=== PATIENT | male | born 1965 | race Caucasian/White ===

== ENCOUNTER 2017-07-07 05:19 | Inpatient (IN) | payer OTHER, SELFPAY ==
[2017-07-07] MEDS ORDERED: Acetaminophen 500 MG TAB ONE (05:29)
[2017-07-07] MEDS ORDERED: Morphine 4 MG/ML VIAL ONE ×2 (05:29→06:38)
[2017-07-07 06:05] LABS: ALT (SGPT) 33 U/L (8-55); AST (SGOT) 27 U/L (5-34); Albumin 4.1 g/dL (3.5-5.0); Alkaline Phosphatase 50 U/L (40-150); Anion Gap 13 mmol/L (10-20); BUN (Urea Nitrogen) 15 mg/dL (8.4-25.7); Bilirubin, Total 1.8 mg/dL (0.2-1.2); Calc. Creatinine Clearance 0 mL/min (70-130); Calcium 9.3 mg/dL (7.8-10.44); Carbon Dioxide 30 mmol/L (22-29); Chloride 94 mmol/L (98-107); Estimated GFR-MDRD 61; Globulin 3.3 g/dL (2.4-3.5); Glucose 130 mg/dL (70-105); Potassium 3.7 mmol/L (3.5-5.1); Protein, Total 7.4 g/dL (6.0-8.3); Sodium 133 mmol/L (136-145)
[2017-07-07] MEDS ORDERED: cefTRIAXone\\ROCEPHIN 2 GM VIAL ONE (06:14)
[2017-07-07] MEDS ORDERED: Sodium Chloride 0.9% 100 ML ONE (06:14)
[2017-07-07 06:17] LABS: Hemoglobin 16.8 g/dL (14.0-18.0); Mean Corpuscular Hemoglobin 34.3 pg (27.0-31.0); Mean Platelet Volume 6.6 fL (7.4-10.4); Platelet Count 188 thou/uL (130-400); RBC Distribution Width 13.7 % (11.5-14.5); Red Blood Cell (RBC) Count 4.88 mill/uL (4.70-6.10); White Blood Cell (WBC) Count 19.4 thou/uL (4.8-10.8)
[2017-07-07 06:30] LABS: Bilirubin Small (Negative); Blood, Urine Negative (Negative); Clarity CLOUDY (Clear); Glucose, Urine (Dipstick) Negative (Negative); Leukocyte Moderate (Negative); Nitrite Positive (Negative); Protein, Urine (Dipstick) 100 mg/dL (Neg-Trace); pH, Urine 7.5 (5.0-9.0)
[2017-07-07 06:32] LABS: Bacteria/HPF None Seen HPF (None Seen)
[2017-07-07 06:34] LABS: Pathc Cast-AUWi Flag 3.92 (0-2.49)
[2017-07-07 06:58] LABS: RBC/HPF 0-3 HPF (0-3)
[2017-07-07 07:09] LABS: Band 29 % (5-11); Lymphocytes 4 % (21-51); MDiff Complete? YES; Metamyelocyte 3 % (0-0); Monocytes 12 % (0-10); Neutrophil 51 % (42-75); PLT Morphology Comment Appears Adequate; Reactive Lymphocytes 1 % (0-10)
[2017-07-07 08:27] VITALS: BMI 44.7
[2017-07-07] MEDS ORDERED: Ondansetron HCl/PF 4 MG/2 ML Vial IVP PRN (08:28)
[2017-07-07] MEDS ORDERED: HYDROcodone/Acetaminophen 5/325 mg Tablet PO PRN ×3 (08:28→21:05)
[2017-07-07] MEDS ORDERED: Ondansetron ODT 4 MG TAB SL PRN (08:28)
[2017-07-07] MEDS: Lorazepam 1 MG TAB PO PRN ×3 (08:56→23:04)
[2017-07-07] MEDS: Sodium Chloride 0.9% 1,000 ML IV SCH ×2 (09:00→15:18)
[2017-07-07] MEDS ORDERED: Acetaminophen 325 MG TAB PO PRN (10:00)
[2017-07-07 10:01] LABS: Lactic Acid 2.1 mmol/L (0.5-2.2)
[2017-07-07] MEDS ORDERED: ISOVUE-370 76%-LOCM 1 ML ONE (11:38)
--- NOTE | 2017-07-07 11:57 | PDOC.EVN ---
Event Note - Event Note Event Note: H&P #[id number]
--- NOTE | 2017-07-07 12:11 | CT ---
PRELIMINARY REPORT/[facility]/EMERGENTY AFTER-HOURS PROCEDURE CT Abdomen and Pelvis With Intravenous Contrast CLINICAL HISTORY: 52 years old, male; Pain; Abdominal pain; Patient HX: 52 y/o m with presentation of uti symptoms (dys uria and foul-smelling urine) x3 days with worsening abdominal and back pain. Pt reports fever tmax 1 01 and was d/c'ed from [facility] with cipro for uti. TECHNIQUE: Axial computed tomography images of the abdomen and pelvis with intravenous contrast. Coronal reforma tted images were created and reviewed. COMPARISON: No relevant prior studies available. FINDINGS: Lung bases: Unremarkable. No mass. No consolidation. Mediastinum: Fluid in the visualized distal esophagus. ABDOMEN: Liver: Diffuse hepatic steatosis. Gallbladder and bile ducts: Unremarkable Pancreas: Unremarkable. Spleen: Unremarkable. Adrenals: Unremarkable. Kidneys and ureters: Subcentimeter bilateral renal hypodensities, statistically cysts. Stomach and bowel: Diverticulosis of the colon without inflammatory changes. Gastric banding in place . PELVIS: Appendix: Normal. Bladder: Diffuse urinary bladder wall thickening. Reproductive: Unremarkable. ABDOMEN and PELVIS: Intraperitoneal space: No free air. No significant fluid collection. Bones/joints: Multilevel degenerative changes of the spine. Severe degenerative changes of the bilate ral hip joints. No acute fracture. No dislocation. Soft tissues: Unremarkable. Vasculature: No abdominal aortic aneurysm. Lymph nodes: Scattered non specific subcentimeter mesenteric lymph nodes. IMPRESSION: 1. Diffuse urinary bladder wall thickening which maybe due to underdistention, however this likely re presents cystitis given the clinical history. 2. Fluid in the visualized distal esophagus. Correlate clinically for reflux disease. 3. Diverticulosis of the colon without inflammatory changes. 4. Diffuse hepatic steatosis. Thank you for allowing us to participate in the care of your patient. Dictated and Authenticated by: Esteban Burkett MD 07/07/2017 6:46 AM Central Time ([place] & [place]) FINAL REPORT CT OF ABDOMEN AND PELVIS PERFORMED WITH IV CONTRAST ENHANCEMENT: Date: 07/07/17 HISTORY: Abdominal pain. UTI symptoms x3 days. Fever. FINDINGS: The lung bases are clear of infiltrates. Liver shows pronounced diffuse fatty change. The liver is not enlarged. The spleen measures 12.2 cm i n length. Pancreas and gallbladder regions are unremarkable. A gastric band is in place. There is fluid within the distal esophagus associated with this. This cou ld be related to reflux or retention of fluid related to the band. Right and left adrenal glands, and right and left kidneys are normal in size. Tiny hypodensities in b oth kidneys are statistically most likely cysts. No renal calculi. No significant periaortic or mesen teric adenopathy. CT of pelvis was performed with contrast enhancement. There is sigmoid diverticulosis noted. No infla mmatory change. The appendix is normal. There is no adenopathy or mass. The bladder is not distended. Wall is questionably thickened versus underdistention. IMPRESSION: 1. Diffuse fatty changes of the liver. 2. Gastric band in place with fluid within the distal esophagus. 3. Sigmoid diverticulosis. 4. Underdistended bladder. I am not certain if the wall thickening of the bladder is related to unde rdistention or cystitis. Clinical correlation is recommended. This report is in agreement with the preliminary report issued by [facility]. POS: [facility]
[2017-07-07 12:49] LABS: Troponin I Less than 0.010 ng/mL (< 0.028)
--- NOTE | 2017-07-07 14:35 | HP ---
DATE OF ADMISSION: 07/07/2017 CHIEF COMPLAINT: Back pain, dysuria, and fever. HISTORY OF PRESENT ILLNESS: This is a 52-year-old male, who apparently 4 or 5 days ago was noted to have some burning upon urination as well as increased frequency in urination. The patient stated reshma t he waited for about 2-3 days, and given the severe symptomatology, the patient went to [facility] and was given antibiotics p.o. and told to follow up if symptoms worsen in 24 hours. Patient upo n discharge, as stated 5-6 hours around 1:00 a.m. in the morning, he was having severe significant wo rsening of his symptoms and decided to come to the [facility] ER. The patient at the time of the a dmission in the ER was found to have a white count of 19.4 as well as lactic acid of 3.7, which on re peat was 2.1. Patient's urinalysis indicative of a severe significant urinary tract infection as wel l as possible pyelonephritis. CT scan done, results are pending. Patient, at this point in time, is being seen in the hospital room. States that he still has some abdominal pain, but has improved sin ce the antibiotic received yesterday. Patient states that this has never happened to him before; fir st time this has occurred. No alleviating or aggravating factors. Does admit to some mild abdominal discomfort and nausea. Otherwise, no other associated complaints or symptoms. The patient was seen and examined in the hospital room. No family at bedside. All questions answered. ALLERGIES: No known drug allergies. PAST MEDICAL HISTORY: Has been positive for hypertension, sleep apnea, left lower extremity DVT as w ell as bilateral lower extremity swelling, and hyperlipidemia. SOCIAL HISTORY: The patient admits to drinking 5-6 glasses of whiskey a day chronically. Does state that he sometimes gets shakes when he has not drunk for a long time. His last drink supposedly was 40 hours ago. Given Ativan as he was having some withdrawal symptoms earlier. Denies any smoking, h as never smoked in the past. FAMILY HISTORY: Mother had heart disease and of a stroke. Father had diabetes, still alive. MEDICATIONS: See MAR. REVIEW OF SYSTEMS: All systems reviewed. Pertinent positives in the HPI, otherwise negative. PHYSICAL EXAMINATION: VITAL SIGNS: Blood pressure is 139/94, O2 saturation 92% on room air, pulse is 97, temperature of 98 .1, respiratory rate of 18. GENERAL: The patient lying in bed, appears in mild discomfort, severe discomfort when asked to sit u p for physical exam, morbidly obese. HEENT: His entire head appears flushed, red, blanching. Oral cavity moist and pink. Normocephalic, atraumatic. Pupils equal, round, reactive to light and accommodation. Extraocular muscles intact. NECK: Increased size; however, mobile, nontender thyroid noted. No lymphadenopathy noted. PULMONARY EXAM: Distant lung sounds; however, clear to auscultation bilaterally. No rales, rhonchi, wheezing noted. Increased AP diameter noted. CARDIOVASCULAR EXAM: Again, distant heart sounds; however, regular rate and rhythm. S1 and S2. No murmurs, rubs, or gallops appreciated. ABDOMINAL EXAM: Mildly tender to palpation, severe flank pain on the left side, and then left-sided costovertebral angle tenderness. Positive bowel sounds. Rotund. No rebound or guarding noted. EXTREMITIES: Lower extremities, left lower extremity has a 2+ pitting edema, right lower extremity a s 1+ pitting edema. Good sensation in bilateral lower extremities. Moving all 4 extremities. NEUROLOGIC: He is alert and oriented x3, answering questions appropriately. Normal affect and no lo ss of motor or sensory function. SKIN: Normal turgor, no rashes noted. LABORATORY MARTINEZ: CBC again shows a white count of 19.4, MCV 101, otherwise platelets and hematocrit are normal. Basic metabolic panel shows a sodium of 133, bicarbonate of 30, chloride of 94, glucose of 130, lactic acid 3.1 and repeat being 2.1, total bilirubin of 1.8, otherwise within normal limits. Urinalysis positive for protein, trace ketones, positive nitrites, bilirubin, moderate leukocyte es terase, white blood cells as well as hyaline casts. ASSESSMENT AND PLAN: 1. Complicated urinary tract infection with possible pyelonephritis. 2. Obesity. 3. Hypertension. 4. Sleep apnea. 5. Hyperlipidemia. 6. Deep vein thrombosis. 7. Alcohol addiction/abuse. PLAN: At this point in time, we will get the patient on Rocephin. Continue with IV fluids. CT scan of the abdomen done, results pending. The patient symptomatically states he feels a little bit bett er today. We will obtain echocardiogram given that the patient is having bilateral edema and not jus t edema in that extremity that has a DVT. We will also obtain chest x-ray and do a troponin trend, a s the patient does state that at times he gets dyspnea on exertion. Otherwise, we will continue home medications, p.r.n. Ativan for withdrawal symptoms. Blood pressure target systolic 130-140. We sarah l also check an A1c if the patient's blood sugar on repeat BMP is elevated. Patient had denied any d iagnosis of diabetes. The patient states that he wants to be a FULL CODE at this point in time after discussion of code status. Case and plan discussed with the patient at length. No family at [facility]. He understands and agrees with this plan.
--- NOTE | 2017-07-07 16:33 | RAD ---
AP VIEW CHEST: 07/07/17 HISTORY: Sepsis, cough. AP view chest is obtained on 07/07/17. AP view chest demonstrates some mild pulmonary vascular congestion. No evidence of effusions, pneumon ia or pneumothorax seen. IMPRESSION: Mild pulmonary vascular congestion, otherwise unremarkable AP view chest. POS: [facility]
[2017-07-07 17:09] LABS: Actual Bicarbonate (HCO3a) 26.2 mEq/L (22-26); Base Excess (BEa) 2.5 mEq/L (0 (+/-) 2.5); CO2 Tension 37.6 mmHg (35.0-45.0); O2 Tension (PaO2) 65.5 mmHg (80.0-100.0); pH, Arterial 7.46 (7.35-7.45)
[2017-07-07 17:10] LABS: Hemoglobin (Hb) 14.5 g/dL (14.0-18.0); Puncture Site RRA
[2017-07-07 18:40] LABS: Troponin I Less than 0.010 ng/mL (< 0.028)
[2017-07-07] MEDS ORDERED: Labetalol HCl 100 MG/20 ML VIAL SLOW IVP PRN (21:14)
[2017-07-07] MEDS ORDERED: Atenolol 50 MG TAB PO SCH (21:15)
[2017-07-07] MEDS ORDERED: Rivaroxaban 10 MG TAB PO SCH (21:15)
[2017-07-07] MEDS ORDERED: Lisinopril/Hydrochlorothiazide 20/25 mg Tablet PO SCH (21:15)
[2017-07-07] MEDS: HYDROcodone/Acetaminophen 5/325 mg Tablet PO PRN (21:22)
[2017-07-07] MEDS: Vancomycin HCl 1.5 GM in Sodium Chloride 0.9% 250 ML 300 ML IVPB SCH (22:56)
[2017-07-07] MEDS ORDERED: Ibuprofen 200 MG TAB PO SCH (23:30)
--- NOTE | 2017-07-08 04:37 | PDOC.EVN ---
Event Note - Event Note Event Note: has high grade fever, vancomycin added c/o right leg weakness, so will get CT LS spine and CT brain pt seen and examined bedside
[2017-07-08 04:38] LABS: #Lymphocytes 0.6 thou/uL (1.20-3.40); #Monocytes 0.5 thou/uL (0.11-0.59); #Neutrophils 7.9 thou/uL (1.40-6.50); %Basophils 0.1 % (0.0-1.0); %Eosinophils 0.2 % (0.0-10.0); %Lymphocytes 6.8 % (21.0-51.0); %Monocytes 5.2 % (0.0-10.0); %Neutrophils 87.7 % (42.0-75.0); Mean Corpuscular Hemoglobin 34.7 pg (27.0-31.0); Mean Platelet Volume 7.1 fL (7.4-10.4); Platelet Count 133 thou/uL (130-400); RBC Distribution Width 13.8 % (11.5-14.5); Red Blood Cell (RBC) Count 4.31 mill/uL (4.70-6.10)
[2017-07-08 04:48] LABS: Anion Gap 13 mmol/L (10-20); BUN (Urea Nitrogen) 20 mg/dL (8.4-25.7); Calc. Creatinine Clearance 187 mL/min (70-130); Calcium 8.2 mg/dL (7.8-10.44); Carbon Dioxide 28 mmol/L (22-29); Chloride 95 mmol/L (98-107); Estimated GFR-MDRD 68; Glucose 109 mg/dL (70-105); Potassium 3.5 mmol/L (3.5-5.1); Sodium 132 mmol/L (136-145)
[2017-07-08] MEDS: HYDROcodone/Acetaminophen 5/325 mg Tablet PO PRN ×3 (05:08→15:30)
[2017-07-08] MEDS: Sodium Chloride 0.9% 1,000 ML IV SCH ×2 (05:10→15:19)
[2017-07-08] MEDS: Diazepam 5 MG TAB PO PRN ×2 (05:40→18:47)
[2017-07-08] MEDS ORDERED: cefTRIAXone\\ROCEPHIN 2 GM in Sodium Chloride 0.9% 100 ML IVPB SCH (06:00)
[2017-07-08] MEDS: Vancomycin HCl 1.5 GM in Sodium Chloride 0.9% 250 ML 300 ML IVPB SCH (08:19)
[2017-07-08] MEDS: Lorazepam 1 MG TAB PO PRN ×2 (08:24→15:17)
[2017-07-08] MEDS ORDERED: Rivaroxaban 10 MG TAB PO SCH (09:00)
[2017-07-08] MEDS ORDERED: Atenolol 50 MG TAB PO SCH (09:00)
[2017-07-08] MEDS ORDERED: Terazosin HCl 1 MG CAP PO SCH (09:00)
[2017-07-08] MEDS ORDERED: Lisinopril/Hydrochlorothiazide 20/25 mg Tablet PO SCH (09:00)
[2017-07-08] MEDS ORDERED: pyridOXINE 50 MG (B6) TAB PO SCH (09:00)
[2017-07-08] MEDS ORDERED: Folic Acid 1 MG TAB PO SCH (09:00)
--- NOTE | 2017-07-08 10:42 | PDOC.PN ---
- Subjective Encounter Start Date: 07/08/17 Encounter Start Time: 10:40 Patient seen and examined, overnight lost sensation in both legs and now having bladder incontinence, no other issues. - Objective Vital Signs & Weight: Vital Signs (12 hours) Temp Pulse Resp BP BP Pulse Ox 07/08/17 07:42 99.3 F 108 H 20 121/73 95 07/08/17 04:24 98.7 F 108 H 20 145/93 H 145/93 H 94 L 07/08/17 00:52 99.1 F 115 H 20 136/84 91 L Weight Admit Weight 387 lb Weight 387 lb I&O: 07/07/17 07/08/17 07/09/17 06:59 06:59 06:59 Intake Total 4875 Balance 4875 Result Diagrams: 07/08/17 03:47 07/08/17 03:47 Additional Labs: Accuchecks 07/07/17 21:36 POC Glucose 107 Phys Exam - Physical Examination Constitutional: NAD HEENT: PERRLA, moist MMs, sclera anicteric Neck: no nodes, no JVD, supple Respiratory: no wheezing, no rales, no rhonchi Cardiovascular: RRR, no significant murmur, no rub Gastrointestinal: soft, non-tender, no distention, positive bowel sounds Musculoskeletal: no edema, pulses present B/L LE loss of sensation and motor function bladder incontinence Psychiatric: normal affect, A&O x 3 Skin: no rash, normal turgor Dx/Plan (1) Lower extremity paralysis Code(s): G83.10 - MONOPLEGIA OF LOWER LIMB AFFECTING UNSPECIFIED SIDE Status: Acute (2) Bladder incontinence Code(s): R32 - UNSPECIFIED URINARY INCONTINENCE Status: Acute (3) Pyelonephritis Code(s): N12 - TUBULO-INTERSTITIAL NEPHRITIS, NOT SPCF ACUTE OR CHRONIC Status: Acute (4) Sepsis Code(s): A41.9 - SEPSIS, UNSPECIFIED ORGANISM Status: Acute (5) UTI (urinary tract infection) Status: Acute (6) Bacteremia Code(s): R78.81 - BACTEREMIA Status: Acute - Plan * ID and neuro sx consult * [facility] * cont abx for now * d/w neuro surgery about neurological changes, they will follow * will keep patient on this floor for now, may consider transfer to ortho floor if ok with neuro sx and IMCU if condition worsens * case and plan d/w patient at length, he understands and agrees with this plan
--- NOTE | 2017-07-08 11:56 | CT ---
PRELIMINARY REPORT/[facility]/EMERGENTY AFTER-HOURS PROCEDURE CT Head Without Intravenous Contrast CLINICAL HISTORY: 52 years old, male; Signs and symptoms; Weakness, extremity; Bilateral; Patient HX: Bilater lower ext remity weakness TECHNIQUE: Axial computed tomography images of the head/brain without intravenous contrast. COMPARISON: No relevant prior studies available. FINDINGS: Normal brain morphology. Bruno-white matter differentiation is preserved. No intracranial hemorrhage or hydrocephalus. No mass, mass effect or midline shift. No effacement of the cortical sulci and basal cisterns. Orbits are unremarkable. Minimal opacification of the right anterior ethmoid air cell. Mastoid air cells are clear. No acute fracture. Multiple dental restorations. Soft tissues unremarkable. IMPRESSION: No acute intracranial abnormality. Thank you for allowing us to participate in the care of your patient. Dictated and Authenticated by: Esteban Burkett MD 07/08/2017 5:25 AM Central Time ([place] & [place]) FINAL REPORT CT OF BRAIN PERFORMED WITHOUT CONTRAST ENHANCEMENT: Date: 07/08/17 HISTORY: Leg weakness and immobility. FINDINGS: The ventricular and cisternal system is within normal limits. There are no signs of intracerebral hem orrhage or extra-axial fluid collections. Mastoid air cells and visualized sinuses are clear. IMPRESSION: No acute intracranial abnormalities. This report is in agreement with the preliminary report issued by [facility]. POS: [facility]
--- NOTE | 2017-07-08 11:58 | CT ---
PRELIMINARY REPORT/[facility]/EMERGENTY AFTER-HOURS PROCEDURE CT Lumbar Spine Without Intravenous Contrast CLINICAL HISTORY: 52 years old, male; Signs and symptoms; Weakness; Patient HX: Acute bilateral lower extremity immobil ity TECHNIQUE: Axial computed tomography images of the lumbar spine without intravenous contrast. Coronal and sagitt al reformatted images were created and reviewed. COMPARISON: No relevant prior studies available. FINDINGS: Vertebrae: There are multilevel degenerative changes consisting of disk space height loss, endplate s clerosis and osteophytosis and facet arthrosis. Multilevel Schmorl's nodes. No acute fracture. Discs/spinal canal/neural foramina: Broad posterior disc osteophyte complex at L2/L3 and L3/L4 with s evere L3/L4 and mild L2/L3 spinal canal stenosis. Severe right L5/S1 neuroforaminal narrowing. Soft tissues: Unremarkable. IMPRESSION: 1. No acute fracture. 2. Multilevel degenerative changes with spinal canal stenosis and neuroforaminal narrowing as describ ed above. Consider further evaluation with MRI as clinically warranted. Thank you for allowing us to participate in the care of your patient. Dictated and Authenticated by: Esteban Burkett MD 07/08/2017 5:18 AM Central Time ([place] & [place]) FINAL REPORT EMERGENCY AFTER HOURS CT OF LUMBAR SPINE PERFORMED WITHOUT CONTRAST ENHANCEMENT: Date: 07/08/17 HISTORY: Bilateral lower extremity weakness. FINDINGS: The vertebral bodies are normal in height. Vacuum disc phenomenon is seen at L2-3 and L4-5. Mild disc narrowing is seen at L5-S1. Degenerative facet changes are seen along the course of the cervical spi ne. No significant periaortic adenopathy visualized. Abdominal aorta appears normal in caliber. Exam quality is limited by body habitus. T12-L1: Unremarkable. L1-2: Degenerative facet changes without definite canal or foraminal stenosis. L2-3: There is posterior osteophytic change at this level. Facet and ligamentous hypertrophic changes are s een. There is a moderate degree of canal stenosis, difficult to assess due to body habitus. L3-4: There appears to be a more severe stenosis at this level with degenerative facet and ligamentous hype rtrophic changes, disc bulge, and posterior osteophytic change. There is also suggestion of some mild right-sided foraminal narrowing. L4-5: There is disc bulge present at this level. No definite significant canal stenosis is seen. Differenti ation between thecal sac and disc material is difficult. No obvious foraminal stenosis. L5-S1: No central canal stenosis. There is marked left-sided foraminal narrowing noted related to posterior osteophytic change at this level. This was reported in the preliminary report as right-sided, but telma nges are more severe on the left side, without any significant right foraminal narrowing. IMPRESSION: Multilevel canal and foraminal stenosis as discussed above. This report is in agreement with the preliminary report issued by [facility]. POS: [facility]
--- NOTE | 2017-07-08 16:17 | CT ---
CT THORACIC SPINE PERFORMED WITHOUT CONTRAST ENHANCEMENT: Date: 07/08/17 HISTORY: Patient became paraplegic overnight. FINDINGS: The bones appear somewhat demineralized. There are degenerative changes along the course of the spine . There is a pathologic appearing fracture associated with the T7 vertebral body. There is fairly min imal loss of height, but substantial loss of bone associated with an obliquely oriented fracture line which extends through both the anterior and posterior portions of the vertebral body suggesting inst ability. It does not appear to involve the facets or posterior elements. I do not see any destructive bony changes of the end plates of the adjacent vertebral bodies. There are paraspinal soft tissue ch anges in this region. There is moderately severe canal stenosis also seen. IMPRESSION: Pathologic fracture with destructive bony change of the T7 vertebral body extending through the anter ior and posterior aspects of the vertebral body. There is no bony retropulsion into the canal, but th e canal does appear to be moderately stenotic. There are paraspinal soft tissue changes. Although the re is not adjacent disc or end plate changes in the vertebral bodies, I still feel that the most like ly etiology of this would be osteomyelitis with a lytic neoplastic bony process as a second possibili ty. These findings were discussed with Dr. Mane. CODE CR. POS: [facility]
--- NOTE | 2017-07-08 16:29 | CON ---
DATE OF CONSULTATION: 07/08/2017 HISTORY OF PRESENT ILLNESS: Mr. Arndt is a 52-year-old man who was admitted yesterday for presumed UTI and pyelonephritis who sometime overnight acutely developed bilateral lower extremity anesthesia as well as paraplegia. Neurosurgery was initially consulted mid-morning around 11:[address] of t he lumbar spine that had been performed revealing mild to moderate degenerative disease and spondylos is throughout with some questionable stenosis and central canal at L3-L4 and L4-L5, though again this was a limited study with only presumptive assessment being able to be made. MRI was recommended, bu t the patient's body habitus was stated to be too large to fit with our scanner then was able to meet with and examined the patient at bedside where he did have a thoracic sensory level around T8 or T9 level, which was essentially immediately subxiphoid in nature. He was a sensate from that point down . He was in minimal pain at that time. Definitively, no motor movement of any kind in either lower extremity. Reflexes were absent. He did not have any ankle clonus bilaterally. It was also reporte d to me that he had had fecal incontinence, and urinary retention with a bladder scan at one point th is morning measuring around 600 mL. He was then catheter with a Potts. Because of this, we ordered a CT scan of the thoracic spine which reveals bony degradation at the T7 vertebral body which could p otentially be either a site of an old fracture or more likely an infectious pathologic fracture with further destruction of the bone at that site. What I am unable to assess is the patency of the centr al canal and neural foramina at that level or the surrounding areas. He does have according to our I nfectious Disease physician, Dr. Martinez positive Staph aureus cultures from his blood. At this time, it was recommended by Neurosurgery after discussing with Dr. Mane that he be transferred to a facili ty that would be able to handle an MRI and thus needed to transfer to a higher level of care based on both our examination and the intubation imaging findings. This was discussed at length with the aric jeffrey at bedside and with the patient and transfer was initiated by the primary team.
[2017-07-08] MEDS ORDERED: Nafcillin 2 GM in Sodium Chloride 0.9% 100 ML IVPB SCH (17:00)
--- NOTE | 2017-07-08 20:26 | PRG ---
DATE OF SERVICE: 07/08/2017 SUBJECTIVE: Mr. Arndt is a 52-year-old gentleman admitted for what was believed to be a complicated UTI with a recent history of worsening abdominal and back pain. 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 Neurosurgery was consulted where examination of the patient revealed a complete motor and sensory level near the T7-8 region. By this point in time, he had had a CT scan performed of the lumbar spine which showed age appropriate degenerative spine disease. Following neurosurgical consultation, he underwent a thoracic CT scan which revealed what is likely to be a pathologic fracture involving the T7 region from either a chronic infectious process or underlying noeplastic process. The stability of this fracture and its role in his neurologic change is also of concern. He has no evidence of bony retropulsion. I reviewed his images with Radiology. We cannot ascertain if there is an acute intraspinal compressive lesion either at the location of the bony destruction or at levels above or below as can occur with epidural extension of abscess. I also can not exclude the possibility of direct traumatic injury from an unstable spine at this level. As his deterioration was quick and profound, I have advocated for an MRI in this region to determine if he has an infectious source as the cause for his injury or if there is evidence for direct spinal cord injury from his fracture or both. Unfortunately, his size and weight exceed the capacity of our MRI machine (confirmed with tech and radiologist). I believe an MRI is prudent for diagnostic, prognostic, and potentially therapeutic reasons. I believe he is a relatively high risk surgical candidate for decompression w/wo stabilization given his comorbidiities , positive blood cultures, and concern for spinal infection. We have attempted today to arrange transfer to a facility that can accommodate a larger patient for the purpose of MRI imaging. One transfer attempt was denied and others are pending. In the meanwhile, he is being given broad spectrum antibiotics as prescribed by our Infectious Disease colleagues and is on bed rest/spine precautions. CLINT
[2017-07-08] MEDS ORDERED: Ibuprofen 200 MG TAB PO SCH (20:30)
--- NOTE | 2017-07-08 21:54 | PRG ---
DATE OF SERVICE: 07/08/2017 I met with Mr. Arndt and members of his family to update him on our treatment plan including their preference to transfer to [place] to a facility that is administered by a friend. I also discussed with them the option of a short segment decompression but expressed my concern that it could be an incomplete operation (given potential need for stabilization or multilevel involvement) and one that does not offer any neurologic benefit given the extent of his injury. The family knows a hospital special education administrator in [place] with whom they have been conferring to facilitate transfer. After a couple of discussions with physicians at the accepting hospital, it is their preference to transfer. I support this if it offers additional diagnostic, prognostic, and potentially therapeutic benefit. On repeat exam, his neurologic status is unchanged. CLINT
--- NOTE | 2017-07-09 00:31 | CON ---
DATE OF CONSULTATION: 07/08/2017 REASON FOR CONSULTATION: Bacteremia with paraplegia. HISTORY OF PRESENT ILLNESS: A 52-year-old patient, history of hypertension, sleep apnea, obesity, and prior deep vein thrombosis as well as alcoholism who has had about a week and a half history of back pain associated with some urinary symptoms initially treated as UTI, but then the back pain worsened, he was noted to have neutrophilia, was admitted to [facility] and now has developed progressively worsening lower extremity symptoms which culminated in full blown paraplegia. He had initially a CT of lumbosacral spine which did not show any obvious areas of erosion. He did not fit in the MRI and there were still some concerns about trying to perform an MRI scan. Currently, he does not have any movement or sensation below the umbilicus and the waist and the lower extremities. No headaches, visual symptoms, sore throat, odynophagia , dysphagia, no cough or sputum production or chest pain, no abdominal pain above the umbilicus. The patient has an indwelling Potts catheter and urine output is about 1200. PAST MEDICAL AND SURGICAL HISTORY: Includes hypertension, sleep apnea, DVT in left lower extremity, alcoholism, obesity, and he has had an ORIF left ankle and rotator cuff surgery. ALLERGIES: None. MEDICATIONS: Had been on atenolol, terazosin, lisinopril, hydrochlorothiazide, Xarelto, and folic acid. FAMILY HISTORY: Noncontributory. SOCIAL HISTORY: He used to suffer from alcohol abuse still does and never smoker. PHYSICAL EXAMINATION: VITAL SIGNS: Temperature max 101 on arrival, he is now 99.9; blood pressure 130 /75; pulse 105; respirations 18; and O2 sat 97%. SKIN: He has an ulcerated area in the left ankle measuring about 2 cm x 1 cm with a reddish base and a little bit of hyperemic surrounding area probably from the previous ulcer size which has improved over time. No lymphadenopathy. Peripheral IV access. The patient has a Potts catheter. Awake, oriented, follows commands. HEENT: Ocular movements conjugate. Oral cavity unremarkable. NECK: Supple. LUNGS: Symmetric clear breath sounds. HEART: S1, S2, without murmurs. No S3 or S4. ABDOMEN: Soft, not distended or tender. He does not have sensation below the umbilicus complete paraplegia is noted. The patient now has completed a thoracic spine CT which demonstrates pathologic fracture, destructive bone change at T7 vertebral body extending to the anterior and posterior aspects of vertebral body, now appears to be moderately stenotic with paraspinal soft tissue changes. Echocardiogram has been done yet to be read. LABORATORY DATA: White cell count is down from 19 to 9000, hemoglobin 15, platelets 133. Sodium 132, creatinine 1.12. Lactic acid 2.1. Microbiology with Staphylococcus aureus 2/2 sets of blood cultures shows methicillin- sensitive strain. Also, from the ankle ulcer retrieved. ASSESSMENT: 1. Obesity with hypertension and sleep apnea syndrome. 2. Back pain worsening with paraplegia complete with a sensory level. 3. Destructive changes T7. 4. Staphylococcus aureus bacteremia. DISCUSSION: The likely scenario here is bacteremia with seeding of the vertebral body of T7 or the disk with then development of epidural abscess and compression of the spinal cord and paraplegia. Neurosurgery has been consulted and apparently there have initiated transfer to higher level of care. We will transition patient from the current antimicrobials to nafcillin 2 grams q.4 hours. MTDD
[2017-07-09 00:43] VITALS: BP 139/73; TEMP 101.2
== END 2017-07-08 20:46 | disposition short-term general hospital (02) | DRG 872 ==
LOC: ERS 05:19 → T4-B 08:18
PROVIDERS: ADMIT Family Medicine; ATTEND Family Medicine
DX: A41.9 Sepsis, unspecified organism (principal); N39.0 Urinary tract infection, site not specified; Z68.41 Body mass index [BMI] 40.0-44.9, adult; G82.20 Paraplegia, unspecified; N12 Tubulo-interstitial nephritis, not specified as acute or chronic; E66.9 Obesity, unspecified; I10 Essential (primary) hypertension; G47.30 Sleep apnea, unspecified; B95.61 Methicillin susceptible Staphylococcus aureus infection as the cause of diseases classified elsewhere; E78.5 Hyperlipidemia, unspecified; F10.10 Alcohol abuse, uncomplicated
CPT/HCPCS: 36415; 36416; 70450; 71045; 72128; 72131; 74177; 80048; 80053; 81003; 81015; 82805; 83605; 84484; 85025; 87040; 87070; 87077; 87086; 87149; 87186; 87205; 90471; 90732; 93306; 94640; 94660; 96365; 96367; 96375; 96376; 99406; G0009; J0696; J2270; J3370; J7050; S0032

== ENCOUNTER 2017-09-07 18:37 | Emergency (ER) | payer OTHER ==
[2017-09-07 19:46] LABS: #Eosinphils 0.3 thou/uL (0.0-0.7); #Lymphocytes 2.2 thou/uL (1.20-3.40); #Monocytes 0.7 thou/uL (0.11-0.59); #Neutrophils 5.2 thou/uL (1.40-6.50); %Basophils 0.3 % (0.0-1.0); %Eosinophils 3.2 % (0.0-10.0); %Lymphocytes 25.9 % (21.0-51.0); %Monocytes 8.2 % (0.0-10.0); %Neutrophils 62.4 % (42.0-75.0); Hemoglobin 9.5 g/dL (14.0-18.0); Mean Corpuscular HGB CONC 33.5 g/dL (32.0-36.0); Mean Corpuscular Hemoglobin 29.5 pg (27.0-31.0); Mean Platelet Volume 6.6 fL (7.4-10.4); Platelet Count 366 thou/uL (130-400); RBC Distribution Width 14.8 % (11.5-14.5); Red Blood Cell (RBC) Count 3.21 mill/uL (4.70-6.10); White Blood Cell (WBC) Count 8.3 thou/uL (4.8-10.8)
[2017-09-07 20:09] LABS: ALT (SGPT) Less than 7 U/L (8-55); AST (SGOT) 11 U/L (5-34); Albumin 3.5 g/dL (3.5-5.0); Alkaline Phosphatase 86 U/L (40-150); Anion Gap 16 mmol/L (10-20); BUN (Urea Nitrogen) 15 mg/dL (8.4-25.7); Bilirubin, Total 0.5 mg/dL (0.2-1.2); Calc. Creatinine Clearance 0 mL/min (70-130); Calcium 9.4 mg/dL (7.8-10.44); Carbon Dioxide 22 mmol/L (22-29); Chloride 106 mmol/L (98-107); Estimated GFR-MDRD Greater than 90; Globulin 3.7 g/dL (2.4-3.5); Glucose 107 mg/dL (70-105); Potassium 3.7 mmol/L (3.5-5.1); Protein, Total 7.2 g/dL (6.0-8.3); Sodium 140 mmol/L (136-145)
[2017-09-07 20:14] LABS: CKMB 0.5 ng/mL (0-6.6); Troponin I Less than 0.010 ng/mL (< 0.028)
== END 2017-09-07 21:27 | disposition home or self-care (01) ==
LOC: EEVIPCON 18:37 → ERS 18:37
DX: T83.091A Other mechanical complication of indwelling urethral catheter, initial encounter (principal); I10 Essential (primary) hypertension; F17.220 Nicotine dependence, chewing tobacco, uncomplicated; Z79.01 Long term (current) use of anticoagulants; Z79.899 Other long term (current) drug therapy; Z79.1 Long term (current) use of non-steroidal anti-inflammatories (NSAID)
CPT/HCPCS: 36415; 80053; 82553; 83605; 84484; 85025; 99283